=== PATIENT | female | born 1955 | race Two or more races ===

== ENCOUNTER 2022-03-07 18:33 | Inpatient (IN) | payer OTHER ==
[~2022-03-07] VITALS: Ht 167.6 cm; Wt 99.5 kg
[~2022-03-07 18:33] MED LIST: BENZ1TAB2; ZIPR80CA37; [UNRECOGNIZED DRUG - CODE]
[2022-03-07] MEDS ORDERED: ALBUTEROL SULF 2.5 MG/0.5ML(0.5%) NEB SOLN HHN ONE (19:00)
[2022-03-07] MEDS ORDERED: IPRATROPIUM BROM 0.5 MG/2.5ML INH SOL HHN ONE (19:00)
[2022-03-07] MEDS ORDERED: methylPREDNISolone SOD SUCC 125 MG/2 ML VL IV ONE (19:00)
[2022-03-07] MEDS ORDERED: FUROSEMIDE 100 MG/10ML VIAL IV ONE (19:00)
[2022-03-07 19:52] LABS: Hematocrit 40.7 % (36.0-46.0); Hemoglobin 13.3 g/dL (12.2-16.2); Mean Corpuscular Hemoglobin 29.8 pg (28.0-32.0); Mean Corpuscular Hgb Conc. 32.6 g/dL (32.0-36.0); Mean Corpuscular Volume 91.3 fL (80.0-100.0); Red Blood Cells 4.45 10^6/uL (4.0-5.20); Red Cell Distribution Width 17.3 % (11.8-14.3); White Blood Cell 4.2 10^3/uL (4.4-10.8)
[2022-03-07] MEDS ORDERED: NITROGLYCERIN 0.4 MG SL TAB SL ONE (20:00)
[2022-03-07 20:01] LABS: Basophils % (manual) 0 (0.0-2.0); Blast Cells 0; Metamyelocytes % 0; Myelocytes % 0; Promyelocytes % 0; Reactive Lymphocytes 0
[2022-03-07 20:18] LABS: INR 1.01 (0.9-1.15); Partial Thromboplastin Time 28.7 sec (24.6-33.4)
[2022-03-07 20:59] LABS: Alanine Aminotransferase 31 U/L (13-56); Albumin 2.7 g/dL (3.4-5.0); Anion Gap 7 (5-15); Aspartate Aminotransferase 46 U/L (15-37); BUN/Creatinine Ratio 16.3; Blood Urea Nitrogen 22 mg/dL (7-18); Calcium 8.6 mg/dL (8.5-10.1); Carbon Dioxide 32 mmol/L (21-32); Chloride 100 mmol/L (98-107); GFR African American 50 mL/min; GFR Non-African American 42 mL/min; Glucose 93 mg/dL (74-106); Potassium 3.8 mmol/L (3.5-5.1); Sodium 139 mmol/L (136-145)
[2022-03-07 21:01] LABS: Alkaline Phosphatase 50 U/L (45-117); Bilirubin, Total 0.4 mg/dL (0.2-1.0); Total Protein 5.8 g/dL (6.4-8.2)
[2022-03-07 21:31] LABS: Band Neutrophils % (manual) 2; Eosinophils % (manual) 3 (0-7); Lymphocytes % (manual) 33 (10.0-50.0); Monocytes % (manual) 15 (0-12)
[2022-03-07 22:15] LABS: Urine Bacteria NONE SEEN /hpf (None Seen); Urine Blood TRACE /uL (Negative); Urine Hyaline Cast MOD /lpf (0 - 2); Urine Mucus FEW (None Seen); Urine Specific Gravity 1.013 (1.001-1.035); Urine WBC 1 /hpf (0 - 5)
[2022-03-08] MEDS ORDERED: NTG 0.1MG/HR TOPICAL PATCH TD ONE (02:00)
[2022-03-08] MEDS ORDERED: FUROSEMIDE 20 MG/2 ML VIAL IV ONE (02:00)
[2022-03-08] MEDS ORDERED: IOHEXOL 350 MG/ML 100ML IJ ONE (09:45)
[2022-03-08] MEDS ORDERED: ACETAMINOPHEN 325 MG TAB PO PRN (12:45)
[2022-03-08] MEDS ORDERED: MORPHINE SULFATE INJ 2 MG/ml SYRG IV PRN ×2 (12:45)
[2022-03-08] MEDS ORDERED: ENOXAPARIN SOD 40 MG/0.4 ML SYRINGE SC SCH (12:45)
[2022-03-08] MEDS ORDERED: HYDROcodone-ACET 5/325MG TAB PO PRN (12:45)
[2022-03-08] MEDS ORDERED: ONDANSETRON HCL 4 MG/2 ML VIAL IV PRN (12:45)
[2022-03-08] MEDS ORDERED: NITROGLYCERIN 0.4 MG SL TAB SL PRN (12:45)
[2022-03-08] MEDS: SODIUM CHLORIDE 0.9% 1,000 ML IV SCH (14:48)
[2022-03-08] MEDS ORDERED: HALOPERIDOL LACTATE 5 MG/ML INJ VIAL IM ONE (18:00)
[2022-03-08] MEDS ORDERED: LORazepam 2MG/ML-1ML VIAL IV PRN (20:45)
[2022-03-08] MEDS ORDERED: HALOPERIDOL LACTATE 5 MG/ML INJ VIAL IM PRN (20:45)
[2022-03-08] MEDS: QUEtiapine FUMARATE 100 MG TAB PO SCH (22:41)
[2022-03-08] MEDS: hydrOXYzine 25 MG TAB or CAP PO SCH (22:42)
[2022-03-09 03:59] LABS: Basophils # (auto) 0 10 ^3/uL (0-0.2); Basophils % (auto) 0.2 % (0.0-2.0); Eosinophils # (auto) 0 10 ^3/uL (0-0.8); Eosinophils % (auto) 0.4 % (0.0-7.0); Hemoglobin 12.7 g/dL (12.2-16.2); Lymphocytes # (auto) 1.5 10 ^3/uL (0.4-5.4); Lymphocytes % (auto) 31.7 % (10.0-50.0); Mean Corpuscular Hemoglobin 29.7 pg (28.0-32.0); Mean Corpuscular Hgb Conc. 32.7 g/dL (32.0-36.0); Mean Corpuscular Volume 90.9 fL (80.0-100.0); Monocytes # (auto) 0.6 10 ^3/uL (0-1.3); Monocytes % (auto) 13.7 % (0.0-12.0); Neutrophils # (auto) 2.5 10 ^3/uL (1.6-8.6); Nucleated Red Blood Cells % 0.1 %; Red Blood Cells 4.29 10^6/uL (4.0-5.20); Red Cell Distribution Width 16.8 % (11.8-14.3); White Blood Cell 4.7 10^3/uL (4.4-10.8)
[2022-03-09 04:24] LABS: Potassium 3.6 mmol/L (3.5-5.1)
[2022-03-09 04:30] LABS: Albumin 2.4 g/dL (3.4-5.0); BUN/Creatinine Ratio 28.4; Calcium 8.6 mg/dL (8.5-10.1)
[2022-03-09 04:32] LABS: Bilirubin, Total 0.4 mg/dL (0.2-1.0); Total Protein 5.2 g/dL (6.4-8.2)
[2022-03-09] MEDS: SODIUM CHLORIDE 0.9% 1,000 ML IV SCH (05:12)
[2022-03-09] MEDS ORDERED: guaiFENesin-DM 100/10mg/5ml SYR PO PRN (09:00)
[2022-03-09] MEDS: hydrOXYzine 25 MG TAB or CAP PO SCH ×2 (10:50→22:28)
[2022-03-09 15:25] LABS: Folate (Folic Acid) 5.52 ng/mL (5.38-24)
[2022-03-09] MEDS: cefTRIAXone 1GM/50ML D5W 50 ML IV SCH (18:07)
[2022-03-09] MEDS: ALBUTEROL SULF 2.5 MG/0.5ML(0.5%) NEB SOLN NEB SCH (18:51)
[2022-03-09 20:44] VITALS: BP 117/69
[2022-03-09] MEDS: QUEtiapine FUMARATE 100 MG TAB PO SCH (22:37)
[2022-03-10] MEDS: ALBUTEROL SULF 2.5 MG/0.5ML(0.5%) NEB SOLN NEB SCH ×5 (00:12→19:07)
[2022-03-10] MEDS: SODIUM CHLORIDE 0.9% 1,000 ML IV SCH ×2 (00:25→17:56)
[2022-03-10] MEDS: cefTRIAXone 1GM/50ML D5W 50 ML IV SCH (10:35)
[2022-03-10] MEDS: hydrOXYzine 25 MG TAB or CAP PO SCH ×2 (10:43→23:06)
[2022-03-10] MEDS: QUEtiapine FUMARATE 100 MG TAB PO SCH (23:06)
[2022-03-11] MEDS: ALBUTEROL SULF 2.5 MG/0.5ML(0.5%) NEB SOLN NEB SCH ×5 (06:14→19:50)
[2022-03-11 07:00] VITALS: BP 123/66
[2022-03-11] MEDS: SODIUM CHLORIDE 0.9% 1,000 ML IV SCH (07:42)
[2022-03-11 09:00] VITALS: BP 154/68
[2022-03-11] MEDS: hydrOXYzine 25 MG TAB or CAP PO SCH ×2 (09:39→22:28)
[2022-03-11] MEDS: cefTRIAXone 1GM/50ML D5W 50 ML IV SCH (09:39)
[2022-03-11 09:46] LABS: Basophils # (auto) 0 10 ^3/uL (0-0.2); Basophils % (auto) 0.3 % (0.0-2.0); Eosinophils # (auto) 0.1 10 ^3/uL (0-0.8); Hematocrit 39.6 % (36.0-46.0); Hemoglobin 12.6 g/dL (12.2-16.2); Lymphocytes # (auto) 1.8 10 ^3/uL (0.4-5.4); Lymphocytes % (auto) 28.5 % (10.0-50.0); Mean Corpuscular Hemoglobin 29.1 pg (28.0-32.0); Mean Corpuscular Hgb Conc. 31.7 g/dL (32.0-36.0); Mean Corpuscular Volume 91.7 fL (80.0-100.0); Monocytes # (auto) 0.9 10 ^3/uL (0-1.3); Monocytes % (auto) 13.7 % (0.0-12.0); Neutrophils # (auto) 3.5 10 ^3/uL (1.6-8.6); Neutrophils % (auto) 56.5 % (37.0-80.0); Nucleated Red Blood Cells % 0.1 %; Red Blood Cells 4.32 10^6/uL (4.0-5.20); Red Cell Distribution Width 16.6 % (11.8-14.3); White Blood Cell 6.2 10^3/uL (4.4-10.8)
[2022-03-11 10:06] LABS: Potassium 3.9 mmol/L (3.5-5.1)
[2022-03-11 10:14] LABS: BUN/Creatinine Ratio 28.6; Calcium 8.8 mg/dL (8.5-10.1)
[2022-03-11 11:32] VITALS: BP 136/61
[2022-03-11 20:00] VITALS: BP 133/78
[2022-03-11] MEDS: QUEtiapine FUMARATE 100 MG TAB PO SCH (22:28)
[2022-03-12] MEDS: SODIUM CHLORIDE 0.9% 1,000 ML IV SCH ×2 (03:01→14:02)
[2022-03-12 05:00] VITALS: BP 124/61
[2022-03-12] MEDS: ALBUTEROL SULF 2.5 MG/0.5ML(0.5%) NEB SOLN NEB SCH ×3 (07:02→18:46)
[2022-03-12 08:00] VITALS: BP_SYST 133; BP_SYST 142; BP_DIAS 73; BP_DIAS 78
[2022-03-12] MEDS: cefTRIAXone 1GM/50ML D5W 50 ML IV SCH (11:15)
[2022-03-12] MEDS: hydrOXYzine 25 MG TAB or CAP PO SCH ×2 (11:15→22:18)
[2022-03-12 12:00] VITALS: BP 145/94
[2022-03-12 16:00] VITALS: BP 166/76
[2022-03-12] MEDS ORDERED: hydrALAZINE HCL 20 MG/ML VL IV PRN (16:45)
[2022-03-12] MEDS: BUDESONIDE (INHALATION) 0.5 MG/2 ML NEB NEB SCH (18:46)
[2022-03-12] MEDS: IPRATROPIUM BROM 0.5 MG/2.5ML INH SOL NEB SCH (18:46)
[2022-03-12 21:04] VITALS: BP 166/76
[2022-03-12 22:13] VITALS: BP 114/61
[2022-03-12] MEDS: QUEtiapine FUMARATE 100 MG TAB PO SCH (22:18)
[2022-03-12] MEDS: methylPREDNISolone SOD SUCC 40 MG/ML VL IV SCH (22:18)
[2022-03-13] VITALS (8 sets, daily range): BP systolic 106–133; BP diastolic 55–78
[2022-03-13] MEDS: ALBUTEROL SULF 2.5 MG/0.5ML(0.5%) NEB SOLN NEB SCH ×4 (00:24→19:23)
[2022-03-13] MEDS: IPRATROPIUM BROM 0.5 MG/2.5ML INH SOL NEB SCH ×4 (00:24→19:23)
[2022-03-13] MEDS: BUDESONIDE (INHALATION) 0.5 MG/2 ML NEB NEB SCH ×2 (06:19→19:24)
[2022-03-13 06:34] LABS: Basophils # (auto) 0 10 ^3/uL (0-0.2); Basophils % (auto) 0.1 % (0.0-2.0); Eosinophils # (auto) 0 10 ^3/uL (0-0.8); Hematocrit 38.6 % (36.0-46.0); Hemoglobin 12.5 g/dL (12.2-16.2); Lymphocytes # (auto) 0.4 10 ^3/uL (0.4-5.4); Lymphocytes % (auto) 10.6 % (10.0-50.0); Mean Corpuscular Hemoglobin 29.7 pg (28.0-32.0); Mean Corpuscular Hgb Conc. 32.5 g/dL (32.0-36.0); Mean Corpuscular Volume 91.2 fL (80.0-100.0); Monocytes # (auto) 0.1 10 ^3/uL (0-1.3); Monocytes % (auto) 1.7 % (0.0-12.0); Neutrophils # (auto) 3.4 10 ^3/uL (1.6-8.6); Neutrophils % (auto) 87.6 % (37.0-80.0); Nucleated Red Blood Cells % 0.2 %; Red Blood Cells 4.23 10^6/uL (4.0-5.20); Red Cell Distribution Width 16.6 % (11.8-14.3); White Blood Cell 3.8 10^3/uL (4.4-10.8)
[2022-03-13 06:53] LABS: Calcium 8.7 mg/dL (8.5-10.1); Potassium 5.1 mmol/L (3.5-5.1)
[2022-03-13] MEDS: FAMOTIDINE 20 MG TAB PO SCH (09:30)
[2022-03-13] MEDS: hydrOXYzine 25 MG TAB or CAP PO SCH ×2 (09:30→22:38)
[2022-03-13] MEDS: methylPREDNISolone SOD SUCC 40 MG/ML VL IV SCH ×2 (09:30→22:37)
[2022-03-13] MEDS: SODIUM CHLORIDE 0.9% 1,000 ML IV SCH (09:30)
[2022-03-13] MEDS: cefTRIAXone 1GM/50ML D5W 50 ML IV SCH (09:30)
[2022-03-13] MEDS: QUEtiapine FUMARATE 100 MG TAB PO SCH (22:38)
[2022-03-14] VITALS (7 sets, daily range): BP systolic 100–128; BP diastolic 57–72
[2022-03-14] MEDS: IPRATROPIUM BROM 0.5 MG/2.5ML INH SOL NEB SCH ×4 (00:19→19:36)
[2022-03-14] MEDS: ALBUTEROL SULF 2.5 MG/0.5ML(0.5%) NEB SOLN NEB SCH ×4 (00:19→19:36)
[2022-03-14] MEDS: SODIUM CHLORIDE 0.9% 1,000 ML IV SCH (02:05)
[2022-03-14] MEDS: BUDESONIDE (INHALATION) 0.5 MG/2 ML NEB NEB SCH ×2 (06:09→19:36)
[2022-03-14] MEDS: cefTRIAXone 1GM/50ML D5W 50 ML IV SCH (09:19)
[2022-03-14] MEDS: FAMOTIDINE 20 MG TAB PO SCH (09:19)
[2022-03-14] MEDS: methylPREDNISolone SOD SUCC 40 MG/ML VL IV SCH ×2 (09:19→21:22)
[2022-03-14] MEDS: hydrOXYzine 25 MG TAB or CAP PO SCH ×2 (09:19→21:22)
[2022-03-14] MEDS: BUMETANIDE 2.5mg/10ml (0.25 mg/ml) INJ IV SCH (17:09)
[2022-03-14] MEDS: QUEtiapine FUMARATE 100 MG TAB PO SCH (21:23)
[2022-03-15] MEDS: ALBUTEROL SULF 2.5 MG/0.5ML(0.5%) NEB SOLN NEB SCH ×4 (00:25→18:38)
[2022-03-15] MEDS: IPRATROPIUM BROM 0.5 MG/2.5ML INH SOL NEB SCH ×4 (00:26→18:38)
[2022-03-15 05:00] VITALS: BP 119/70
[2022-03-15] MEDS: BUMETANIDE 2.5mg/10ml (0.25 mg/ml) INJ IV SCH ×2 (05:53→17:45)
[2022-03-15 08:00] VITALS: BP 104/61
[2022-03-15] MEDS: hydrOXYzine 25 MG TAB or CAP PO SCH ×2 (08:58→23:22)
[2022-03-15] MEDS: FAMOTIDINE 20 MG TAB PO SCH (08:58)
[2022-03-15] MEDS: methylPREDNISolone SOD SUCC 40 MG/ML VL IV SCH ×2 (08:58→23:21)
[2022-03-15] MEDS: cefTRIAXone 1GM/50ML D5W 50 ML IV SCH (08:58)
[2022-03-15 12:00] VITALS: BP 107/67
[2022-03-15] MEDS: BUDESONIDE (INHALATION) 0.5 MG/2 ML NEB NEB SCH ×2 (14:00→18:44)
[2022-03-15 16:00] VITALS: BP 134/69
[2022-03-15 20:00] VITALS: BP 98/52
[2022-03-15] MEDS: QUEtiapine FUMARATE 100 MG TAB PO SCH (23:23)
[2022-03-16] VITALS (9 sets, daily range): BP systolic 93–127; BP diastolic 41–70
[2022-03-16] MEDS: ALBUTEROL SULF 2.5 MG/0.5ML(0.5%) NEB SOLN NEB SCH ×4 (00:06→19:32)
[2022-03-16] MEDS: IPRATROPIUM BROM 0.5 MG/2.5ML INH SOL NEB SCH ×4 (00:06→19:33)
[2022-03-16] MEDS: BUMETANIDE 2.5mg/10ml (0.25 mg/ml) INJ IV SCH ×2 (05:56→18:00)
[2022-03-16] MEDS: BUDESONIDE (INHALATION) 0.5 MG/2 ML NEB NEB SCH ×2 (06:12→19:32)
[2022-03-16] MEDS: cefTRIAXone 1GM/50ML D5W 50 ML IV SCH (10:49)
[2022-03-16] MEDS: methylPREDNISolone SOD SUCC 40 MG/ML VL IV SCH ×2 (10:49→21:29)
[2022-03-16] MEDS: FAMOTIDINE 20 MG TAB PO SCH (12:00)
[2022-03-16] MEDS: hydrOXYzine 25 MG TAB or CAP PO SCH ×2 (12:00→21:30)
[2022-03-16 13:27] LABS: Basophils # (auto) 0 10 ^3/uL (0-0.2); Basophils % (auto) 0.1 % (0.0-2.0); Eosinophils # (auto) 0 10 ^3/uL (0-0.8); Hematocrit 40.6 % (36.0-46.0); Hemoglobin 13.7 g/dL (12.2-16.2); Lymphocytes # (auto) 0.9 10 ^3/uL (0.4-5.4); Mean Corpuscular Hemoglobin 30.6 pg (28.0-32.0); Mean Corpuscular Hgb Conc. 33.7 g/dL (32.0-36.0); Monocytes # (auto) 0.4 10 ^3/uL (0-1.3); Monocytes % (auto) 7.8 % (0.0-12.0); Neutrophils # (auto) 3.9 10 ^3/uL (1.6-8.6); Neutrophils % (auto) 75.1 % (37.0-80.0); Nucleated Red Blood Cells % 0.1 %; Red Blood Cells 4.46 10^6/uL (4.0-5.20); Red Cell Distribution Width 16.4 % (11.8-14.3); White Blood Cell 5.2 10^3/uL (4.4-10.8)
[2022-03-16 13:43] LABS: BUN/Creatinine Ratio 26.8; Calcium 9.1 mg/dL (8.5-10.1)
[2022-03-16] MEDS ORDERED: IOHEXOL 350 MG/ML 100ML IJ ONE (14:00)
[2022-03-16] MEDS: QUEtiapine FUMARATE 100 MG TAB PO SCH (21:30)
[2022-03-17] MEDS: ALBUTEROL SULF 2.5 MG/0.5ML(0.5%) NEB SOLN NEB SCH ×4 (00:56→19:22)
[2022-03-17] MEDS: IPRATROPIUM BROM 0.5 MG/2.5ML INH SOL NEB SCH ×4 (00:56→19:22)
[2022-03-17 05:00] VITALS: BP_SYST 127; BP_SYST 132; BP_DIAS 47; BP_DIAS 70
[2022-03-17] MEDS: BUMETANIDE 2.5mg/10ml (0.25 mg/ml) INJ IV SCH ×2 (06:32→18:39)
[2022-03-17] MEDS: BUDESONIDE (INHALATION) 0.5 MG/2 ML NEB NEB SCH ×2 (07:03→19:22)
[2022-03-17 08:43] VITALS: BP 123/75
[2022-03-17] MEDS: hydrOXYzine 25 MG TAB or CAP PO SCH ×2 (09:29→22:02)
[2022-03-17] MEDS: FAMOTIDINE 20 MG TAB PO SCH (09:30)
[2022-03-17] MEDS: methylPREDNISolone SOD SUCC 40 MG/ML VL IV SCH ×2 (09:30→22:02)
[2022-03-17] MEDS: cefTRIAXone 1GM/50ML D5W 50 ML IV SCH (09:30)
[2022-03-17 12:28] VITALS: BP 121/70
[2022-03-17 16:35] VITALS: BP 117/81
[2022-03-17 22:00] VITALS: BP 111/60
[2022-03-17] MEDS: QUEtiapine FUMARATE 100 MG TAB PO SCH (22:02)
[2022-03-18] MEDS: ALBUTEROL SULF 2.5 MG/0.5ML(0.5%) NEB SOLN NEB SCH ×4 (00:12→19:27)
[2022-03-18] MEDS: IPRATROPIUM BROM 0.5 MG/2.5ML INH SOL NEB SCH ×4 (00:12→19:27)
[2022-03-18 05:00] VITALS: BP 115/62
[2022-03-18] MEDS: BUDESONIDE (INHALATION) 0.5 MG/2 ML NEB NEB SCH (06:17)
[2022-03-18] MEDS: BUMETANIDE 2.5mg/10ml (0.25 mg/ml) INJ IV SCH ×2 (06:23→18:23)
[2022-03-18 09:00] VITALS: BP 132/72
[2022-03-18] MEDS: FAMOTIDINE 20 MG TAB PO SCH ×2 (09:19→22:10)
[2022-03-18] MEDS: hydrOXYzine 25 MG TAB or CAP PO SCH ×2 (09:19→22:09)
[2022-03-18] MEDS: cefTRIAXone 1GM/50ML D5W 50 ML IV SCH (09:26)
[2022-03-18] MEDS: methylPREDNISolone SOD SUCC 40 MG/ML VL IV SCH (09:28)
[2022-03-18 13:00] VITALS: BP 128/75
[2022-03-18 13:42] LABS: Basophils # (auto) 0 10 ^3/uL (0-0.2); Basophils % (auto) 0.2 % (0.0-2.0); Eosinophils # (auto) 0 10 ^3/uL (0-0.8); Hemoglobin 14.5 g/dL (12.2-16.2); Lymphocytes # (auto) 0.6 10 ^3/uL (0.4-5.4); Lymphocytes % (auto) 10.8 % (10.0-50.0); Mean Corpuscular Hemoglobin 30.8 pg (28.0-32.0); Mean Corpuscular Hgb Conc. 33.7 g/dL (32.0-36.0); Mean Corpuscular Volume 91.4 fL (80.0-100.0); Monocytes # (auto) 0.2 10 ^3/uL (0-1.3); Monocytes % (auto) 4.2 % (0.0-12.0); Neutrophils # (auto) 4.3 10 ^3/uL (1.6-8.6); Neutrophils % (auto) 84.8 % (37.0-80.0); Nucleated Red Blood Cells % 0.1 %; Red Cell Distribution Width 16.6 % (11.8-14.3); White Blood Cell 5.1 10^3/uL (4.4-10.8)
[2022-03-18 13:57] LABS: BUN/Creatinine Ratio 36.9; Calcium 9.2 mg/dL (8.5-10.1); Potassium 4.5 mmol/L (3.5-5.1)
[2022-03-18] MEDS ORDERED: MEROPENEM 1GM IVPB 100 ML IV ONE (16:45)
[2022-03-18] MEDS ORDERED: SODIUM CHLORIDE 0.9% 500 ML IV ONE (16:45)
[2022-03-18 17:10] VITALS: BP 117/75
[2022-03-18] MEDS: SODIUM CHLORIDE 0.9% 1,000 ML IV SCH (18:49)
[2022-03-18 22:00] VITALS: BP 119/72
[2022-03-18] MEDS: QUEtiapine FUMARATE 100 MG TAB PO SCH (22:09)
[2022-03-19] MEDS: ALBUTEROL SULF 2.5 MG/0.5ML(0.5%) NEB SOLN NEB SCH ×4 (00:45→19:05)
[2022-03-19] MEDS: BUDESONIDE (INHALATION) 0.5 MG/2 ML NEB NEB SCH ×3 (00:46→19:05)
[2022-03-19] MEDS: IPRATROPIUM BROM 0.5 MG/2.5ML INH SOL NEB SCH ×4 (00:46→19:05)
[2022-03-19] MEDS: SODIUM CHLORIDE 0.9% 1,000 ML IV SCH ×2 (02:47→12:45)
[2022-03-19 02:58] VITALS: BP 119/72
[2022-03-19 04:50] VITALS: BP 125/66
[2022-03-19] MEDS ORDERED: MEROPENEM 500MG IVPB 50 ML IV SCH (05:00)
[2022-03-19] MEDS ORDERED: MEROPENEM 1GM IVPB 100 ML IV SCH (05:00)
[2022-03-19 05:30] LABS: Basophils # (auto) 0 10 ^3/uL (0-0.2); Basophils % (auto) 0.1 % (0.0-2.0); Eosinophils # (auto) 0 10 ^3/uL (0-0.8); Eosinophils % (auto) 0.5 % (0.0-7.0); Hematocrit 40.2 % (36.0-46.0); Hemoglobin 13.1 g/dL (12.2-16.2); Lymphocytes # (auto) 2.1 10 ^3/uL (0.4-5.4); Lymphocytes % (auto) 33.3 % (10.0-50.0); Mean Corpuscular Hemoglobin 29.6 pg (28.0-32.0); Mean Corpuscular Hgb Conc. 32.5 g/dL (32.0-36.0); Mean Corpuscular Volume 90.8 fL (80.0-100.0); Monocytes # (auto) 0.7 10 ^3/uL (0-1.3); Monocytes % (auto) 10.7 % (0.0-12.0); Neutrophils # (auto) 3.4 10 ^3/uL (1.6-8.6); Neutrophils % (auto) 55.4 % (37.0-80.0); Nucleated Red Blood Cells % 0.1 %; Red Blood Cells 4.43 10^6/uL (4.0-5.20); Red Cell Distribution Width 16.4 % (11.8-14.3); White Blood Cell 6.2 10^3/uL (4.4-10.8)
[2022-03-19 05:48] LABS: Calcium 8.8 mg/dL (8.5-10.1); Potassium 4.1 mmol/L (3.5-5.1)
[2022-03-19 05:51] LABS: BUN/Creatinine Ratio 42.3
[2022-03-19] MEDS: BUMETANIDE 2.5mg/10ml (0.25 mg/ml) INJ IV SCH ×2 (06:17→19:12)
[2022-03-19 09:00] VITALS: BP 117/76
[2022-03-19] MEDS: hydrOXYzine 25 MG TAB or CAP PO SCH ×2 (10:44→21:54)
[2022-03-19] MEDS: FAMOTIDINE 20 MG TAB PO SCH ×2 (10:44→21:54)
[2022-03-19 13:00] VITALS: BP 139/79
[2022-03-19] MEDS: MEROPENEM 1GM IVPB 100 ML IV SCH ×2 (14:45→17:45)
[2022-03-19 17:00] VITALS: BP 120/56
[2022-03-19] MEDS: QUEtiapine FUMARATE 100 MG TAB PO SCH (21:53)
[2022-03-19 22:00] VITALS: BP 103/67
[2022-03-20] MEDS: IPRATROPIUM BROM 0.5 MG/2.5ML INH SOL NEB SCH ×4 (00:04→18:15)
[2022-03-20] MEDS: ALBUTEROL SULF 2.5 MG/0.5ML(0.5%) NEB SOLN NEB SCH ×4 (00:04→18:15)
[2022-03-20] MEDS: MELATONIN 5 MG TAB PO SCH ×2 (00:23→23:45)
[2022-03-20] MEDS: SODIUM CHLORIDE 0.9% 1,000 ML IV SCH ×4 (03:47→23:56)
[2022-03-20 05:00] VITALS: BP 116/69
[2022-03-20] MEDS: MEROPENEM 1GM IVPB 100 ML IV SCH ×3 (06:44→23:43)
[2022-03-20] MEDS: BUMETANIDE 2.5mg/10ml (0.25 mg/ml) INJ IV SCH ×2 (06:45→17:55)
[2022-03-20] MEDS: BUDESONIDE (INHALATION) 0.5 MG/2 ML NEB NEB SCH ×2 (07:04→18:15)
[2022-03-20 07:09] LABS: Basophils # (auto) 0 10 ^3/uL (0-0.2); Basophils % (auto) 0.2 % (0.0-2.0); Eosinophils # (auto) 0.1 10 ^3/uL (0-0.8); Eosinophils % (auto) 1.6 % (0.0-7.0); Hematocrit 38.1 % (36.0-46.0); Hemoglobin 12.5 g/dL (12.2-16.2); Lymphocytes # (auto) 1.9 10 ^3/uL (0.4-5.4); Lymphocytes % (auto) 34.1 % (10.0-50.0); Mean Corpuscular Hemoglobin 30.1 pg (28.0-32.0); Mean Corpuscular Volume 91.4 fL (80.0-100.0); Monocytes # (auto) 0.6 10 ^3/uL (0-1.3); Monocytes % (auto) 11.9 % (0.0-12.0); Neutrophils # (auto) 2.8 10 ^3/uL (1.6-8.6); Neutrophils % (auto) 52.2 % (37.0-80.0); Nucleated Red Blood Cells % 0.2 %; Red Blood Cells 4.17 10^6/uL (4.0-5.20); Red Cell Distribution Width 16.4 % (11.8-14.3); White Blood Cell 5.4 10^3/uL (4.4-10.8)
[2022-03-20 07:17] LABS: Calcium 8.6 mg/dL (8.5-10.1)
[2022-03-20 07:20] LABS: BUN/Creatinine Ratio 37.7
[2022-03-20 08:34] VITALS: BP 109/69
[2022-03-20] MEDS: hydrOXYzine 25 MG TAB or CAP PO SCH ×2 (09:36→23:47)
[2022-03-20] MEDS: FAMOTIDINE 20 MG TAB PO SCH ×2 (09:36→23:45)
[2022-03-20 13:00] VITALS: BP 138/74
[2022-03-20 21:30] VITALS: BP 98/57
[2022-03-20] MEDS: QUEtiapine FUMARATE 100 MG TAB PO SCH (23:45)
[2022-03-21] MEDS: ALBUTEROL SULF 2.5 MG/0.5ML(0.5%) NEB SOLN NEB SCH ×5 (00:08→23:46)
[2022-03-21] MEDS: IPRATROPIUM BROM 0.5 MG/2.5ML INH SOL NEB SCH ×5 (00:08→23:46)
[2022-03-21] MEDS: BUMETANIDE 2.5mg/10ml (0.25 mg/ml) INJ IV SCH (06:00)
[2022-03-21 07:34] LABS: Basophils # (auto) 0 10 ^3/uL (0-0.2); Basophils % (auto) 0.3 % (0.0-2.0); Eosinophils # (auto) 0.1 10 ^3/uL (0-0.8); Eosinophils % (auto) 1.1 % (0.0-7.0); Hematocrit 37.2 % (36.0-46.0); Hemoglobin 12.4 g/dL (12.2-16.2); Lymphocytes # (auto) 2.1 10 ^3/uL (0.4-5.4); Lymphocytes % (auto) 26.1 % (10.0-50.0); Mean Corpuscular Hemoglobin 30.3 pg (28.0-32.0); Mean Corpuscular Hgb Conc. 33.4 g/dL (32.0-36.0); Mean Corpuscular Volume 90.6 fL (80.0-100.0); Monocytes # (auto) 0.8 10 ^3/uL (0-1.3); Monocytes % (auto) 10.5 % (0.0-12.0); Neutrophils # (auto) 4.9 10 ^3/uL (1.6-8.6); Red Cell Distribution Width 16.2 % (11.8-14.3); White Blood Cell 7.9 10^3/uL (4.4-10.8)
[2022-03-21 08:21] LABS: Calcium 8.6 mg/dL (8.5-10.1); Potassium 4.5 mmol/L (3.5-5.1)
[2022-03-21] MEDS: MEROPENEM 1GM IVPB 100 ML IV SCH ×2 (08:53→14:24)
[2022-03-21 09:00] VITALS: BP 113/50
[2022-03-21] MEDS: FAMOTIDINE 20 MG TAB PO SCH ×2 (10:08→22:31)
[2022-03-21] MEDS: hydrOXYzine 25 MG TAB or CAP PO SCH ×2 (10:08→22:31)
[2022-03-21 13:00] VITALS: BP 100/49
[2022-03-21] MEDS: SODIUM CHLORIDE 0.9% 1,000 ML IV SCH (14:45)
[2022-03-21] MEDS: BUDESONIDE (INHALATION) 0.5 MG/2 ML NEB NEB SCH ×2 (15:37→18:16)
[2022-03-21 17:00] VITALS: BP 106/65
[2022-03-21] MEDS: BUMETANIDE 1 MG TAB PO SCH (17:54)
[2022-03-21] MEDS ORDERED: ALBUTEROL MEDNEB 2.5 mg/3ml NEB ONE ×2 (18:05→23:43)
[2022-03-21 22:00] VITALS: BP 108/69
[2022-03-21] MEDS: AMOXICILLIN/CLAVUL 875 MG TAB PO SCH (22:30)
[2022-03-21] MEDS: MELATONIN 5 MG TAB PO SCH (22:31)
[2022-03-21] MEDS: QUEtiapine FUMARATE 100 MG TAB PO SCH (22:31)
[2022-03-22] VITALS (8 sets, daily range): BP systolic 101–115; BP diastolic 51–69
[2022-03-22] MEDS: SODIUM CHLORIDE 0.9% 1,000 ML IV SCH ×3 (01:57→20:45)
[2022-03-22] MEDS ORDERED: ALBUTEROL MEDNEB 2.5 mg/3ml NEB ONE ×4 (06:17→23:56)
[2022-03-22] MEDS: ALBUTEROL SULF 2.5 MG/0.5ML(0.5%) NEB SOLN NEB SCH ×4 (06:38→19:31)
[2022-03-22] MEDS: BUMETANIDE 1 MG TAB PO SCH ×2 (06:38→17:55)
[2022-03-22] MEDS: IPRATROPIUM BROM 0.5 MG/2.5ML INH SOL NEB SCH ×3 (07:05→19:30)
[2022-03-22] MEDS: FAMOTIDINE 20 MG TAB PO SCH ×2 (09:55→22:29)
[2022-03-22] MEDS: hydrOXYzine 25 MG TAB or CAP PO SCH ×2 (09:55→22:29)
[2022-03-22] MEDS: AMOXICILLIN/CLAVUL 875 MG TAB PO SCH ×2 (09:55→22:28)
[2022-03-22] MEDS: BUDESONIDE (INHALATION) 0.5 MG/2 ML NEB NEB SCH ×2 (10:38→19:30)
[2022-03-22] MEDS: MELATONIN 5 MG TAB PO SCH (22:29)
[2022-03-22] MEDS: QUEtiapine FUMARATE 100 MG TAB PO SCH (22:30)
[2022-03-23] MEDS: IPRATROPIUM BROM 0.5 MG/2.5ML INH SOL NEB SCH ×2 (00:05→06:00)
[2022-03-23] MEDS: ALBUTEROL SULF 2.5 MG/0.5ML(0.5%) NEB SOLN NEB SCH ×2 (00:05→06:00)
[2022-03-23 05:00] VITALS: BP 115/49
[2022-03-23] MEDS: BUMETANIDE 1 MG TAB PO SCH (06:00)
[2022-03-23] MEDS ORDERED: ALBUTEROL MEDNEB 2.5 mg/3ml NEB ONE (06:06)
[2022-03-23] MEDS: SODIUM CHLORIDE 0.9% 1,000 ML IV SCH (06:45)
[2022-03-23] MEDS: BUDESONIDE (INHALATION) 0.5 MG/2 ML NEB NEB SCH (07:17)
[2022-03-23 08:15] VITALS: BP 114/49
[2022-03-23] MEDS: FAMOTIDINE 20 MG TAB PO SCH (10:00)
[2022-03-23] MEDS: AMOXICILLIN/CLAVUL 875 MG TAB PO SCH (10:00)
[2022-03-23] MEDS: hydrOXYzine 25 MG TAB or CAP PO SCH (10:00)
[2022-03-23] MEDS ORDERED: BUME1TAB3 PO (13:54)
[2022-03-23] MEDS ORDERED: DIVA1TAB58 PO ×2 (13:54)
[2022-03-23] MEDS ORDERED: POM PO (13:54)
[2022-03-23] MEDS ORDERED: HYDR1CAP27 PO (13:54)
[2022-03-23] MEDS ORDERED: QUET100T47 PO (13:54)
[2022-03-23] MEDS ORDERED: AMOX-277 PO (13:54)
[2022-03-23 15:02] VITALS: BP 92/59
== END 2022-03-23 17:13 | DRG 70 ==
LOC: EDBD 18:33 → EDUNIT# 18:33 → ER 18:36 → UNDOADMIN 03-08 12:38 → TELE 03-08 12:38 → OBSVTOIN 03-10 10:29 → TELE-WESTW 03-11 09:01
PROVIDERS: ADMIT Internal Medicine; ATTEND Internal Medicine
PROC: 5A09357 Assistance with Respiratory Ventilation, Less than 24 Consecutive Hours, Continuous Positive Airway Pressure (ICD-10-PCS; principal; 2022-03-12)
PROC: 5A09357 Assistance with Respiratory Ventilation, Less than 24 Consecutive Hours, Continuous Positive Airway Pressure (ICD-10-PCS; 2022-03-13)
PROC: 5A09357 Assistance with Respiratory Ventilation, Less than 24 Consecutive Hours, Continuous Positive Airway Pressure (ICD-10-PCS; 2022-03-16)
PROC: 5A09357 Assistance with Respiratory Ventilation, Less than 24 Consecutive Hours, Continuous Positive Airway Pressure (ICD-10-PCS; 2022-03-18)
DX: G93.41 Metabolic encephalopathy (principal); J18.9 Pneumonia, unspecified organism; J96.01 Acute respiratory failure with hypoxia; F03.93 Unspecified dementia, unspecified severity, with mood disturbance; J98.11 Atelectasis; E87.1 Hypo-osmolality and hyponatremia; J44.0 Chronic obstructive pulmonary disease with (acute) lower respiratory infection; J44.1 Chronic obstructive pulmonary disease with (acute) exacerbation; H05.20 Unspecified exophthalmos; D69.6 Thrombocytopenia, unspecified; F20.9 Schizophrenia, unspecified; Z20.822 Contact with and (suspected) exposure to COVID-19; F31.9 Bipolar disorder, unspecified; G25.0 Essential tremor; I50.9 Heart failure, unspecified; R79.89 Other specified abnormal findings of blood chemistry; R41.0 Disorientation, unspecified; E66.9 Obesity, unspecified; I11.0 Hypertensive heart disease with heart failure; Z68.38 Body mass index [BMI] 38.0-38.9, adult; Z88.5 Allergy status to narcotic agent; Z88.8 Allergy status to other drugs, medicaments and biological substances; Z75.1 Person awaiting admission to adequate facility elsewhere; Z91.013 Allergy to seafood
CPT/HCPCS: 36415; 36600; 70450; 70551; 71045; 71250; 71275; 76775; 78582; 80048; 80053; 81001; 82607; 82746; 82805; 82962; 83880; 84484; 85007; 85025; 85027; 85379; 85610; 85730; 87040; 87426; 87804; 93005; 93306; 93970; 94640; 94660; 96374; 96375; 96376; 97110; 97116; 97163; 97530; 99291; G0378; J0696; J2185

== ENCOUNTER 2022-08-08 19:50 | Emergency (ER) | payer OTHER ==
[~2022-08-08] VITALS: Ht 172.7 cm; Wt 104.5 kg
[~2022-08-08 19:50] MED LIST changes: +AMOX-277 PO; -BENZ1TAB2; +BUME1TAB3 PO; +DIVA1TAB58 PO; +HYDR1CAP27 PO; +POM PO; +QUET100T47 PO; -ZIPR80CA37; -[UNRECOGNIZED DRUG - CODE]
[2022-08-08] MEDS ORDERED: DEXTROSE 10% 250 ML Bag IV ONE (19:51)
[2022-08-08] MEDS ORDERED: AMIODARONE HCL (50 MG/ ML) 3 ML VIAL IV ONE (19:51)
[2022-08-08] MEDS ORDERED: ATROPINE SULF 1 MG/10ml SYR IV ONE (19:51)
[2022-08-08] MEDS ORDERED: EPINEPHrine HCL 1 MG/10 ML SYRG IV ONE (19:51)
[2022-08-08] MEDS ORDERED: SODIUM BICARBONATE 8.4% INJ 50ML SYRINGE IV ONE (19:51)
[2022-08-08 19:56] VITALS: BP 99/66
[2022-08-08] MEDS ORDERED: EPINEPHrine HCL 250 ML IV ONE (19:58)
== END 2022-08-09 01:38 ==
LOC: EDUNIT# 19:50 → ER 19:50
DX: I46.9 Cardiac arrest, cause unspecified (principal); I11.0 Hypertensive heart disease with heart failure; I50.89 Other heart failure; J44.9 Chronic obstructive pulmonary disease, unspecified; E11.9 Type 2 diabetes mellitus without complications; F20.9 Schizophrenia, unspecified; Z88.5 Allergy status to narcotic agent; Z88.8 Allergy status to other drugs, medicaments and biological substances; Z79.899 Other long term (current) drug therapy
CPT/HCPCS: 31500; 92950; 99285; J0171; J0282